=== PATIENT | female | born 1960 | race Caucasian/White ===

== ENCOUNTER 2025-08-16 06:44 | Inpatient (IN) | payer MEDICARE, OTHER ==
[~2025-08-16] VITALS: Ht 160 cm; Wt 52.2 kg
[~2025-08-16 06:44] MED LIST: KETOROLAC TROMETHAMINE INJ 30 MG/ML VIAL ONE
[2025-08-16] MEDS ORDERED: LANOLIN/MIN OIL/PETROLAT,WHT 3.5 GM TUBE OP ONE (06:45)
[2025-08-16] MEDS ORDERED: BUPIVACAINE 0.5 % PF 150 MG/30 ML VIAL ONE (07:03)
[2025-08-16] MEDS ORDERED: ANESTHESIA TRAY IN PYXIS 1 EA TRAY MC ONE (07:03)
[2025-08-16] MEDS ORDERED: LIDOCAINE 2%-EPI 1:100,000 30 ML VIAL ONE (07:03)
[2025-08-16] MEDS ORDERED: POLYMYXIN B SULFATE 500,000 UNITS ONE (07:03)
[2025-08-16] MEDS ORDERED: GENTAMICIN 80 MG/2 ML VIAL ONE (07:03)
[2025-08-16] MEDS ORDERED: dexaMETHasone SOD PHOSPHATE 2 ML ONE (07:04)
[2025-08-16] MEDS ORDERED: VANCOMYCIN 1 GM VIAL ONE (07:04)
[2025-08-16] MEDS ORDERED: CEFAZOLIN 1 GM ONE (07:04)
[2025-08-16] MEDS ORDERED: FENTANYL PF 250MCG/5ML AMPUL ONE (07:16)
[2025-08-16] MEDS ORDERED: FAMOTIDINE/PF INJ 20 MG/2 ML VIAL IV ONE (07:17)
[2025-08-16] MEDS: PIPERACILLIN /TAZOBACTAM 3.375 G in IV D5W 50 ML IV ONE (08:00)
[2025-08-16] MEDS ORDERED: LABETALOL HCL IV 100MG VIAL ONE (08:17)
[2025-08-16] MEDS ORDERED: SEVOFLURANE 250 ML BOTTLE IH ONE (08:17)
[2025-08-16] MEDS ORDERED: OXYMETAZOLINE HCL NASAL SPRAY 30 ML BOTTLE NS ONE (10:23)
[2025-08-16] MEDS ORDERED: ONDANSETRON HCL/PF 4 MG/2 ML VIAL IV PRN ×2 (13:00)
[2025-08-16] MEDS ORDERED: HYDROMORPHONE 1 MG/1 ML DISP.SYRIN IV PRN (13:00)
[2025-08-16] MEDS: ZOSYN IVPB 3.375 G in IV D5W 50ml IV SCH (14:26)
[2025-08-16] MEDS: IV NS 0.9% 1,000 ML IV PRN (14:27)
[2025-08-16] MEDS: VANCOMYCIN 1 GM in IV D5W 250ml IV SCH (19:28)
[2025-08-16 20:00] VITALS: BP 149/90; TEMP 97.5; O2SAT 96
[2025-08-17 08:00] VITALS: BP 158/87; TEMP 97.7; O2SAT 100
[2025-08-17] MEDS: P-EPHED SUL/LORATADINE (24H) 1 TAB.SR.24H PO SCH (09:16)
== END 2025-08-17 13:00 | disposition home or self-care (01) | DRG 141 ==
LOC: DS 06:44 → MED 12:11
PROC: 0N5R0ZZ Destruction of Maxilla, Open Approach (ICD-10-PCS; 2025-08-16)
PROC: 0NUR07Z Supplement Maxilla with Autologous Tissue Substitute, Open Approach (ICD-10-PCS; 2025-08-16)
PROC: 09BR0ZZ Excision of Left Maxillary Sinus, Open Approach (ICD-10-PCS; 2025-08-16)
PROC: 09BQ0ZZ Excision of Right Maxillary Sinus, Open Approach (ICD-10-PCS; 2025-08-16)
PROC: 09UR07Z Supplement Left Maxillary Sinus with Autologous Tissue Substitute, Open Approach (ICD-10-PCS; 2025-08-16)
PROC: 09UQ07Z Supplement Right Maxillary Sinus with Autologous Tissue Substitute, Open Approach (ICD-10-PCS; 2025-08-16)
PROC: 0KX10ZZ Transfer Facial Muscle, Open Approach (ICD-10-PCS; 2025-08-16)
PROC: 0NSR04Z Reposition Maxilla with Internal Fixation Device, Open Approach (ICD-10-PCS; principal; 2025-08-16 07:30)
DX: S02.40DA Maxillary fracture, left side, initial encounter for closed fracture (principal); K12.2 Cellulitis and abscess of mouth; D16.4 Benign neoplasm of bones of skull and face; S02.40CA Maxillary fracture, right side, initial encounter for closed fracture; I10 Essential (primary) hypertension; J44.9 Chronic obstructive pulmonary disease, unspecified; M87.9 Osteonecrosis, unspecified; M27.2 Inflammatory conditions of jaws; D16.5 Benign neoplasm of lower jaw bone; I25.10 Atherosclerotic heart disease of native coronary artery without angina pectoris; J32.9 Chronic sinusitis, unspecified; M84.9 Disorder of continuity of bone, unspecified; K13.79 Other lesions of oral mucosa; M81.0 Age-related osteoporosis without current pathological fracture; M85.9 Disorder of bone density and structure, unspecified; X58.XXXA Exposure to other specified factors, initial encounter; Y92.9 Unspecified place or not applicable
CPT/HCPCS: A4223; A4338; C1713; G0378; J0690; J1100; J1308; J1580; J1885; J2405; J2543; J2704; J3010; J3373; J3490; J7030; J7060